=== PATIENT | female | born 1985 | race American Indian/Alaskan Native ===

== ENCOUNTER 2020-07-31 16:59 | Emergency (ER) | payer MEDICAID ==
[2020-07-31 17:23] VITALS: BP 96/63
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
[2020-07-31] MEDS ORDERED: IBUPROFEN 800 MG TAB PO ONE (20:13)
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
== END 2020-07-31 22:30 | disposition home or self-care (01) ==
LOC: ED 16:59
DX: S09.93XA Unspecified injury of face, initial encounter (principal); Z79.899 Other long term (current) drug therapy; Y04.2XXA Assault by strike against or bumped into by another person, initial encounter; Y93.89 Activity, other specified; Y92.89 Other specified places as the place of occurrence of the external cause; Y99.8 Other external cause status
CPT/HCPCS: 70486; 99283